=== PATIENT | male | born 1995 | race Caucasian/White ===

== ENCOUNTER 2022-02-16 10:16 | Emergency (ER) | payer BC ==
[2022-02-16 11:39] LABS: CORONAVIRUS COVID-19 NAA NEGATIVE (NEGATIVE)
[2022-02-16] MEDS ORDERED: Penicillin G Benzathine 1,200,000 Units/2 ML Syringe IM ONE (11:59)
== END 2022-02-16 12:21 | disposition home or self-care (01) ==
LOC: JD.ED 10:16
DX: J02.0 Streptococcal pharyngitis (principal); F17.210 Nicotine dependence, cigarettes, uncomplicated; Z88.2 Allergy status to sulfonamides; Z20.822 Contact with and (suspected) exposure to COVID-19
CPT/HCPCS: 0241U; 36415; 86308; 87651; 96372; 99283; J0561; 99282

== ENCOUNTER 2022-06-03 18:51 | Emergency (ER) | payer BC | END 2022-06-03 22:27 | disposition home or self-care (01) | LOC: JD.ED 18:51 | DX: S09.90XA Unspecified injury of head, initial encounter (principal); M54.2 Cervicalgia; Z88.2 Allergy status to sulfonamides; Z72.0 Tobacco use; W20.8XXA Other cause of strike by thrown, projected or falling object, initial encounter | CPT/HCPCS: 70450; 70450-26; 72125; 72125-26; 99283 ==